=== PATIENT | male | born 1970 ===

== ENCOUNTER 2024-01-04 18:09 | Inpatient (IN) ==
--- NOTE | 2024-01-04 18:18 | ED Triage Note ---
Date of Service January 04, 2024 Provider in Triage Author: Ayde Cole History of Present Illness This patient was briefly evaluated while in triage. An abbreviated physical exam was performed. This patient is a 53-year-old Male who presents to the ED for evaluation of chest pain. Pt. has history of cardiac arrest - LAD in 2010 with 2 stents. Pt. now c/o chest tightness intermittently for a few days. States today, as soon as he does activity or gets his heart rate elevated, experiences chest pain. Note: Pt. is currently on prednisone for gout flare. Pt. experiencing SOB only with pain. Physical Exam VITALS: Vitals are noted on the nurse's note and reviewed by myself. GENERAL: This is a 53 year old male, in no acute distress, nondiaphoretic, well- developed well-nourished. SKIN: No obvious rashes, edema, erythema HEAD: Normocephalic atraumatic. EYES: Conjunctivae without injection, sclerae without icterus. NECK: No JVD. LUNGS: No retractions or accessory muscle use. MUSCULOSKELETAL: Normal gait. NEURO: Patient was alert and oriented to person place and time. No focal neurological deficits. Initial orders for labs and / or imaging were placed and patient was placed in the waiting area until a bed is available. Please see further documentation for the full ED course. MDM / Impression Impression Impression: NSTEMI (non-ST elevated myocardial infarction), Chest pressure, CAD S/P percutaneous coronary angioplasty
[2024-01-04 19:19] LABS: Basophils # (auto) 0.03 K/uL (0.00-0.20); Basophils % (auto) 0.2 %; Hemoglobin 14.2 g/dl (14.0-18.0); Immature Granulocytes # (auto) 0.05 K/uL (0.01-0.20); Immature Granulocytes % (auto) 0.4 %; Lymphocytes # (auto) 2.01 K/uL (1.20-3.40); Lymphocytes % (auto) 15.2 %; Mean Corpuscular Hemoglobin 30.5 pg (25.0-34.0); Mean Corpuscular Hgb Conc 34.6 g/dL (32.0-36.0); Mean Corpuscular Volume 88.2 fL (80.0-100.0); Mean Platelet Volume 9.8 fL (9.4-12.4); Monocytes # (auto) 0.58 K/uL (0.11-0.59); Monocytes % (auto) 4.4 %; Neutrophils # (auto) 10.59 K/uL (1.40-6.50); Neutrophils % (auto) 79.8 %; Platelet Count 306 K/uL (130-400); RDW Coefficient of Variation 12.3 % (11.5-14.5); RDW Standard Deviation 39.5 fL (36.4-46.3); Red Blood Count 4.65 M/uL (4.70-6.10); White Blood Count 13.26 K/ul (4.8-10.8)
[2024-01-04 19:27] LABS: Albumin Globulin Ratio 1.2 (0.9-2); Albumin Level 4.3 gm/dl (3.4-5.0); BUN Creatinine Ratio 22.7 (10-20); Bilirubin,Total 0.3 mg/dl (0.2-1.0); Calcium 9.7 mg/dl (8.6-10.3); Creatinine Clr Calc Pharmacy 113.6 ml/min; Est GFR (African American) 115.3 ml/min; Est GFR (Non-African American) 99.5 ml/min; Globulin 3.6 gm/dl (2.5-4.0); Potassium 4.6 mmol/L (3.5-5.1); Total Protein 7.9 gm/dl (6.0-8.3)
[2024-01-04 19:35] LABS: Troponin I High Sensitivity 1161.5 pg/ml (0-20)
[2024-01-04 19:40] LABS: Partial Thromboplastin Ratio 0.9; Partial Thromboplastin Time 25 Seconds (21-31); Prothrombin Time 11.1 Seconds (9.0-12.0)
--- NOTE | 2024-01-04 19:40 | XRay Report ---
XR chest 1V portable CLINICAL HISTORY: Chest pain, nonspecific TECHNIQUE: Single frontal radiograph of the chest was obtained. Comparison: None available at the time of this dictation. FINDINGS: No lines and tubes are seen. The cardiomediastinal silhouette is normal. The lungs are clear. No evid ence of pleural effusion or pneumothorax. IMPRESSION: No acute chest disease. ACT 112: Negative or not required by law. Electronically signed by: Eduardo Montalvo M.D. 01/04/2024 7:39 PM
[2024-01-04] MEDS: SODIUM CHLORIDE 0.9% 1,000 ML IV STA (19:50)
[2024-01-04] MEDS: ASPIRIN CHEW 324 MG PO STA (19:50)
[2024-01-04] MEDS ORDERED: Heparin IV Adult Wt-Based Low-Dose w/ INITIAL Bolus Protocol IV STA (20:12)
[2024-01-04 20:17] LABS: Appearance Urine Clear (Clear); Bilirubin Urine Negative (Negative); Blood Urine Negative (Negative); Color Urine Yellow; Glucose Urine UA Negative (Negative); Ketones Urine Negative (Negative); Leukocyte Esterase Urine Negative (Negative); Nitrite Urine Negative (Negative); Protein Urine Negative (Negative); Urobilinogen Urine Negative (Negative); pH Urine 7.5 (4.5-7.5)
[2024-01-04] MEDS ORDERED: HEPARIN SOD (PORCINE) 1000 UNIT/ML IV ONE (20:28)
[2024-01-04] MEDS ORDERED: Heparin IV Adult Wt-Based Low-Dose w/ INITIAL Bolus Protocol IV SCH (20:30)
[2024-01-04] MEDS: HEPARIN SOD (PORCINE) 1000 UNIT/ML IV ONE (20:36)
[2024-01-04] MEDS: HEPARIN SODIUM/DEXTROSE 25,000 UNITS/500 ML BAG IV SCH (20:36)
--- NOTE | 2024-01-04 20:39 | History & Physical Report ---
Date of Service January 04, 2024 Assessment & Plan (1) NSTEMI (non-ST elevated myocardial infarction): Plan: -Admit to the PCU on tele -Currently stable and asymptomatic -Presented to the ED with 5 days of ongoing chest pressure and tachycardia with exertion -Noted to have a high sen trop of 1160 on arrival -Hx of Cardiac arrest and PCI with TESS X 2 to the LAD in 2010 -No acute ST segment or T-wave changes on ECG -Cardiology has been consulted, recommended starting heparin drip overnight -Patient was given 324 mg Aspirin and started on low-dose, weight-based heparin drip with bolus -Will start 1 inch of nitro past q6h as he has been hypertensive in the ED -Potassium and mag are stable; monitor and replete to keep potassium at or above 4.0 and mag at or above 2.0 -Cardiology consult placed -Will obtain TTE in the am -Continue to trop high sen trop overnight, 2 hour repeat is in process -Will hold beat blockers for now as his HR has been in the 50-60's since arrival -Continue statin -HH/DMII diet until midnight then NPO in case of heart cath tomorrow -AM CBC, CMP, Mag, PT/INR, A1c, Lipid panel (2) CAD S/P percutaneous coronary angioplasty: Plan: -S/P PCI and TESS X 2 to LAD in 2010 after Cardiac Arrest -Continue statin and 81 mg aspirin daily -Rest of care per NSTEMI plan (3) Gout: Plan: -Patient has been on a prednisone taper for the past week due to recent gout flare in his right knee -States that his dose tomorrow should be reduced from 40 to 20 mg -Will start 20 mg daily for the next two days then can continue to taper as needed -Will start daily pantoprazole for stress ulcer PPX -Right knee with mild erythema and swelling -Hold Naproxen with current NSTEMI (4) Hyperglycemia: Plan: -Patient noted to be hyperglycemic at 199 on arrival -No previous diagnosis of DM -Could be due to his current prednisone taper for gout flare -Will obtain AM A1c and lipid panel -For now with monitor BSG ACHS, goal is 110-160 for now -Will start CF of 50 ACHS -HH/DMII diet (5) Chest pressure: Plan: -See NSTEMI (6) Hyperlipidemia: Plan: -Continue statin Plan The patient was discussed with Dr. Olivares at the time of the admission History of Present Illness Chief Complaint: Chest pain, SOB Primary Care Provider: LOTTIE PCP Linwood is a 53 year old male inmate at [facility] with a PMH significant for cardiac arrest S/P PCI with TESS x 2 to the LAD in 2010, gout, hyperlipidemia who presented to the [facility] ED on 01/04/24 with complaints of substernal chest pain/pressure and KENNEDY for the past 3 days. He remained stable in the ED. Labs were significant for a leukocytosis of 13 with neutrophil predominance of 10, glucose of 199, and initial high sen trop of 1161. ECG's showed NSR without acu te ST segment or T-wave changes. Chest xray was read as negative for acute findings. The patient was given full dose aspirin and 1L NSS initially. The ED spoke with Cardiology who recommended starting the patient on a heparin drip. At the time of the exam the patient was lying in bed in no acute distress. He states that over the past 4-5 days he has been experiencing substernal chest pressure and tachycardia with exertion. He first noticed it approximately 5 days ago while walking briskly. Since then it has been increasing in frequency and severity. He denies radiation of the chest pressure and states that he has not experienced his symptoms while at rest. When asked, he states that these symptoms feel similar to symptoms he was experiencing prior to his last [facility]. He is currently on a prednisone taper for a gout flare in his right knee. He states that the pain and swelling have significantly improved since starting the prednisone. He denies current chest discomfort. He denies cigarette use but did use chewing tobacco in the past. Please refer to Dr. Olivares's attestation for any changes to the treatment plan Allergies Allergy/AdvReac Type Severity Reaction Status Date / Time No Known Allergies Allergy Verified 01/04/24 19:52 Home Medications Medication Instructions Recorded Confirmed Type allopurinol 100 mg tablet 50 mg PO BID PRN GOUT FLARES 01/04/24 01/04/24 History aspirin 81 mg tablet,delayed 81 mg PO DAILY 01/04/24 01/04/24 History release atorvastatin 20 mg tablet 20 mg PO HS 01/04/24 01/04/24 History naproxen 500 mg tablet 500 mg PO BID 01/04/24 01/04/24 History prednisone 10 mg tablet 40 mg PO DAILY 01/04/24 01/04/24 History Past Med/Surg History Social History Smoking Status: Former smoker Tobacco Type: Cigarettes Second Hand Exposure: No; Do You Dip or Chew Tobacco: No; Tobacco Cessation Education Requested by Patient: No Hx Alcohol Use: No Hx Substance Use: No Preferred Language: [place] Communication Ability: Effective Pick Up Operator Required: No Beliefs That Will Affect Care: None Current Living Situation: Other Current Living Situation Comment: [facility] Other Information That Helps Us Care for You: No Feels Safe at Home: Yes Safety Concerns: Feels Safe At This Time Assistive Devices: None Physical Exam Physical Exam: Physical Exam: General: In no acute distress, stated age, well-nourished, good hygiene HEENT: Normocephalic, atraumatic, no scleral icterus, pupils around round, symmetrical, and reactive to light, moist mucus membranes, trachea midline, no thyromegaly Chest/Pulm: No respiratory distress, symmetrical chest expansion, clear breath sounds throughout Cardiac: RRR, no murmurs noted Abdomen: Negative for ascites and bruising, normoactive bowel sounds, soft, non-tender to palpation throughout Musculoskeletal: Symmetrical and without signs of acute trauma, upper and lower extremities with full ROM, patient with minimal swelling and erythema of the right knee Extremities: Radial, dorsalis pedis, and posterior tibial pulses are intact and symmetrical, no edema noted in the BL LE's Skin: as described above Neuro: Alert and oriented to person, place, month, year, and president, no focal defects, no tremors noted Psych: No acute distress, calm and cooperative during the exam Results & Data Results & Data Vital Signs (Past 12 Hours) Vital Signs Temp Pulse Pulse Resp BP BP Pulse Ox 01/04/24 19:57 66 18 172/93 H 99 01/04/24 18:14 36.2 C L 66 20 156/93 H 95 O2 Del Method 01/04/24 19:57 Room Air 01/04/24 18:14 Room Air Laboratory Results Abnormal lab results 01/04/24 Range/Units 18:44 WBC 13.26 H (4.8-10.8) K/ul RBC 4.65 L (4.70-6.10) M/uL Hct 41.0 L (42.0-52.0) % Neut # (Auto) 10.59 H (1.40-6.50) K/uL BUN/Creatinine Ratio 22.7 H (10-20) Glucose 199 H (70-99(Fasting)) mg/dl Troponin I High Sens 1161.5 H* (0-20) pg/ml Diagnostic Findings Chest X-Ray 01/04/24 18:18 XR chest 1V portable CLINICAL HISTORY: Chest pain, nonspecific TECHNIQUE: Single frontal radiograph of the chest was obtained. Comparison: None available at the time of this dictation. FINDINGS: No lines and tubes are seen. The cardiomediastinal silhouette is normal. The lungs are clear. No evidence of pleural effusion or pneumothorax. IMPRESSION: No acute chest disease. ACT 112: Negative or not required by law. Electronically signed by: Eduardo Montalvo M.D. 01/04/2024 7:39 PM ECG Additional Comments: Normal sinus rhythm Normal ECG No previous ECGs available Code Status & VTE Plan Code Status FUll code VTE Prophylaxis Plan VTE Prophylaxis will be ordered: Yes Supervising Physician Co-Signing Physician Notes Attending addendum: I have supervised the medical residents activities, and agree with the H&P unless as otherwise noted. Assessment and Plan: NSTEMI/CAD/history of [facility] and cardiac arrest, status post PCI and TESS x 2 to LAD in 2010- The patient will be admitted to telemetry for serial cardiac enzymes, serial EKG's, cardiac rhythm monitoring and a 2-D echocardiogram with Dopplers. Initial troponin 1161.5 Heparin drip per standard protocol Patient is already received 324 mg aspirin Start Nitropaste 1 inch anterior chest wall every 6 hours Bradycardia makes unable to add beta-denzel Cardiology aware Stop use of naproxen now and long-term Status post 1 L normal saline from the ED Hyperlipidemia- On atorvastatin 20 mg at bedtime Check a fasting lipid panel and hemoglobin A1c in the morning Hyperglycemia- Glucose 199 on admission Likely secondary to present use of prednisone Hemoglobin A1c to be checked as noted Placed on Accu-Cheks with NovoLog SSI per scale as noted Gout- Continue allopurinol Patient with 2 more days of prednisone taper as noted for recent flare, that will be continued PG Care Time/CCT Total # of Minutes Spent Total Time Spent with Patient: Total time spent is greater than 50% in coordination of care (as documented) at patient's floor/unit and/or counseling patient: [place] [address] INT INP/OBS CARE 75MIN Patient Type New Medical Decision Making High Complexity Diagnoses NSTEMI (non-ST elevated myocardial infarction) I21.4 CAD S/P percutaneous coronary angioplasty I25.10; Z98.61 Gout M10.9 Hyperglycemia R73.9 Chest pressure R07.89 Hyperlipidemia E78.5
[2024-01-04 21:05] LABS: Magnesium 2.3 mg/dl (1.7-2.4)
[2024-01-04] MEDS: PANTOprazole 40 MG TAB PO STA (21:08)
[2024-01-04] MEDS ORDERED: GLUCOSE 10 TAB/TUBE PO PRN (21:17)
[2024-01-04] MEDS ORDERED: GLUCAGON FOR INJ 1 MG VIAL SQ PRN (21:17)
[2024-01-04] MEDS ORDERED: CARBOHYDRATES FOR HYPOGLYCEMIA PO PRN (21:17)
[2024-01-04] MEDS ORDERED: DEXTROSE 50% 50 ML SYRINGE IV PRN (21:17)
[2024-01-04] MEDS ORDERED: GLUCOSE 40% GEL 15 GM TUBE PO PRN (21:17)
--- NOTE | 2024-01-04 21:23 | Emergency Department Note ---
Impression & Plan NSTEMI (non-ST elevated myocardial infarction), Chest pressure, CAD S/P percutaneous coronary angioplasty ED Provider Note NAME: URIAH [id number] SENG AGE: 53 SEX: M : 1970 ARRIVES VIA: Walk-In INFORMANT: Patient ED PROVIDER(S): Car Cary DO CHIEF COMPLAINT: chest pain HPI: Patient is a 53-year-old male with a past medical history of a STEMI and cardiac arrest who presents the ER for chest pressure which has been off and on with only exertion in the past week. He notes it gradually getting worse. He normally is very active. Gets shortness of breath with it. No arm or jaw pain. No belly pain, nausea, vomiting, or diarrhea. No dysuria, urgency, or frequency. No other exacerbating or remitting factors. Patient notes that he has not received any stents since 2010 when he had his cardiac arrest. No recent trips or travel or history of blood clots or clotting disorders. No hemoptysis. Patient currently has no chest pain. ADDITIONAL HISTORY OBTAINED: Per HPI Chronic Medical/Social Conditions Affecting Care: Per HPI PAST MEDICAL HISTORY:See Below PAST SURGICAL HISTORY:See Below FAMILY HISTORY:See Below SOCIAL HISTORY:See Below HOME MEDICATIONS:See Below ALLERGIES:See Below VITALS:See Below PHYSICAL EXAMINATION: GENERAL: Sitting up in bed, alert, well appearing, well nourished, no distress, non-toxic EYE EXAM: normal conjunctiva. OROPHARYNX: no exudate, no erythema, lips, buccal mucosa, and tongue normal and mucous membranes are moist NECK: supple, no nuchal rigidity, no adenopathy, non-tender LUNGS: Clear to auscultation. Normal chest wall mechanics HEART: no murmurs, S1 normal and S2 normal ABDOMEN: abdomen soft, non-tender, normo-active bowel sounds, no masses, no rebound or guarding. UPPER EXTREMITIES: upper extremities are grossly normal. LOWER EXTREMITIES: No pitting edema. Calves are equal bilateral NEURO EXAM: Normal sensorium, cranial nerves II-XII grossly intact, normal speech, no gross weakness of arms, no gross weakness of legs. MEDICAL DECISION MAKING: Patient is a 53-year-old male with a past medical history of CAD, cardiac arrest and stents who presents the ER for chest pain. Patient is currently pain-free. IV was established blood work was obtained. Labs show leukocytosis of 13,000. No significant anemia. INR unremarkable. BMP with LFTs and bilirubin was unremarkable with exception of a troponin of just over thousand. Lipase was normal. UA was negative. COVID-negative. Chest x-ray was clean. EKG was unremarkable. Patient was pain-free. Discussed with Dr. Nunez or from cardiology and recommended heparin drip. Patient denies any previous brain bleeds, coughing up blood, urinating blood or vomiting blood. Patient was discussed with the hospitalist for further evaluation management treatment and placed on a heparin drip and bolus. Consults/Care Managements Discussions: Per [facility] Triage Nursing notes reviewed. Limited review of prior medical records performed Vital Signs: reviewed and remarkable for HTN Differential diagnosis: Cardiac ischemia, aortic dissection, pulmonary embolism, pneumothorax, pneumonia, pericarditis, myocarditis, esophageal rupture, GERD, cholecystitis, pancreatitis, musculoskeletal, as well as other pathologies. ER treatment provided: See below Diagnostics interpreted by me include EKG and cardiac monitoring as listed below: -Cardiac Monitoring: An order was placed for continuous cardiac monitoring. The monitor shows a rate of 60 with sinus rhythm. -ECG: Sinus rhythm rate of 57 Normal axis No PVCs QTc 389 -Laboratory studies:Interpreted by me as stated above in MDM and shown below. Imaging studies: Xrays: As interpreted by me: Portable AP upright 1 view of the chest shows no focal infiltrate CTs show: none Procedures:none Critical Care: I have personally spent 32 minutes of critical care time in the direct management of this patient. This includes bedside care, interpretation of diagnostic studies, and testing, discussion with consultants, patient, and family members, and other required patient management activities. This 32 minutes is in excess of all separately billable procedures. Past Med/Surg History Social History Smoking Status: Former smoker Preferred Language: [place] Feels Safe at Home: Yes Allergies Allergies Allergy/AdvReac Type Severity Reaction Status Date / Time No Known Allergies Allergy Verified 01/04/24 19:52 Home Meds Home Medications Medication Instructions Recorded Confirmed allopurinol 100 mg tablet 50 mg PO BID PRN GOUT FLARES 01/04/24 01/04/24 aspirin 81 mg tablet,delayed 81 mg PO DAILY 01/04/24 01/04/24 release atorvastatin 20 mg tablet 20 mg PO HS 01/04/24 01/04/24 naproxen 500 mg tablet 500 mg PO BID 01/04/24 01/04/24 prednisone 10 mg tablet 40 mg PO DAILY 01/04/24 01/04/24 Results & Data (ED) Vital Signs Vital Signs - 24 hr 01/04/24 18:14 01/04/24 19:57 Temperature 36.2 C L Temperature Source Temporal Artery Scan Pulse Rate 66 Pulse Rate [Finger] 66 Respiratory Rate 20 18 Respiratory Effort / Characteristics Non-Labored Blood Pressure 156/93 H Blood Pressure [Right Arm] 172/93 H Blood Pressure Mean 114 Blood Pressure Mean [Right Arm] 119 Pulse Oximetry 95 99 Oxygen Delivery Method Room Air Room Air Sepsis Recent Fever Within 48 Hours No Sepsis New/Unexplained Change in Mental Status N/A Sepsis Action Taken by Nursing No Action Required Laboratory Data 01/04/24 18:44 01/04/24 18:44 Lab Results 01/04/24 01/04/24 01/04/24 Range/Units 18:44 20:08 20:33 WBC 13.26 H (4.8-10.8) K/ul RBC 4.65 L (4.70-6.10) M/uL Hgb 14.2 (14.0-18.0) g/dl Hct 41.0 L (42.0-52.0) % MCV 88.2 (80.0-100.0) fL MCH 30.5 (25.0-34.0) pg MCHC 34.6 (32.0-36.0) g/dL RDW Std Deviation 39.5 (36.4-46.3) fL RDW Coeff of Victorina 12.3 (11.5-14.5) % Plt Count 306 (130-400) K/uL MPV 9.8 (9.4-12.4) fL Immature Gran % (Auto) 0.4 % Neut % (Auto) 79.8 % Lymph % (Auto) 15.2 % [place] % (Auto) 4.4 % Eos % (Auto) 0.0 % Baso % (Auto) 0.2 % Neut # (Auto) 10.59 H (1.40-6.50) K/uL Lymph # (Auto) 2.01 (1.20-3.40) K/uL [place] # (Auto) 0.58 (0.11-0.59) K/uL Eos # (Auto) 0.00 (0.00-0.50) K/uL Baso # (Auto) 0.03 (0.00-0.20) K/uL Immature Gran # (Auto) 0.05 (0.01-0.20) K/uL PT 11.1 (9.0-12.0) Seconds INR 1.0 (0.9-1.1) APTT 25 (21-31) Seconds PTT Ratio 0.9 Sodium 138 (136-145) mmol/L Potassium 4.6 (3.5-5.1) mmol/L Chloride 104 (98-107) mmol/L Carbon Dioxide 27 (21-32) mmol/L Anion Gap 7 (3-11) BUN 20 (6-23) mg/dl Creatinine 0.88 (0.6-1.4) mg/dl Est Cr Clr Drug Dosing 113.6 ml/min Est GFR ( Amer) 115.3 ml/min Est GFR (Non-Af Amer) 99.5 ml/min BUN/Creatinine Ratio 22.7 H (10-20) Glucose 199 H (70-99(Fasting)) mg/dl Calcium 9.7 (8.6-10.3) mg/dl Magnesium 2.3 (1.7-2.4) mg/dl Total Bilirubin 0.3 (0.2-1.0) mg/dl AST 25 (13-39) U/L ALT 37 (7-52) U/L Alkaline Phosphatase 93 (34-104) U/L Troponin I High Sens 1161.5 H* 1050.6 H* (0-20) pg/ml Total Protein 7.9 (6.0-8.3) gm/dl Albumin 4.3 (3.4-5.0) gm/dl Globulin 3.6 (2.5-4.0) gm/dl Albumin/Globulin Ratio 1.2 (0.9-2) Lipase 11 (11-82) U/L Urine Color Yellow Urine Appearance Clear (Clear) Urine pH 7.5 (4.5-7.5) Ur Specific [place] 1.010 (1.000-1.030) Urine Protein Negative (Negative) Urine Glucose (UA) Negative (Negative) Urine Ketones Negative (Negative) Urine Blood Negative (Negative) Urine Nitrite Negative (Negative) Urine Bilirubin Negative (Negative) Urine Urobilinogen Negative (Negative) Ur Leukocyte Esterase Negative (Negative) SARS-CoV-2, RNA, NAAT NEGATIVE (NEGATIVE) Administered Medications Heparin Sodium/Dextrose (Heparin Sodium/Dextrose) 25,000 units in 500 mls @ 19 mls/hr IV .Q24H SOFI; Protocol Stop: 02/03/24 20:29 Last Admin: 01/04/24 20:36 Dose: 950 units/hr, 19 mls/hr Documented By: JOHNSON Co-signed By: RADHA Discontinued Medications Aspirin (Aspirin Chew 324 Mg) 324 mg PO NOW STA Stop: 01/04/24 18:19 Last Admin: 01/04/24 19:50 Dose: 324 mg Documented By: RADHA Heparin Sodium (Porcine) (Heparin Sod (Porcine) 1000 Unit/Ml) 4,000 units IV NOW ONE Stop: 01/04/24 20:31 Last Admin: 01/04/24 20:36 Dose: 4,000 units Documented By: JOHNSON Co-signed By: RADHA Sodium Chloride (Nss) 1,000 mls @ 999 mls/hr IV .Q1H1M STA Stop: 01/04/24 19:18 Last Infusion: 01/04/24 20:57 Dose: Infused Documented By: Admin: 01/04/24 19:50 Dose: 999 mls/hr Documented By: RADHA Pantoprazole Sodium (Pantoprazole 40 Mg Tab) 40 mg PO NOW STA Stop: 01/04/24 20:38 Last Admin: 01/04/24 21:08 Dose: 40 mg Documented By: JOHNSON Imaging Data Radiologist's Impression: Chest X-Ray 01/04/24 18:18 XR chest 1V portable CLINICAL HISTORY: Chest pain, nonspecific TECHNIQUE: Single frontal radiograph of the chest was obtained. Comparison: None available at the time of this dictation. FINDINGS: No lines and tubes are seen. The cardiomediastinal silhouette is normal. The lungs are clear. No evidence of pleural effusion or pneumothorax. IMPRESSION: No acute chest disease. ACT 112: Negative or not required by law. Electronically signed by: Eduardo Montalvo M.D. 01/04/2024 7:39 PM Discharge Plan Visit Data Chief Complaint: Chest Pain Stated Complaint: CHEST PAIN ED Provider: Car Cary Discharge Problem: NSTEMI (non-ST elevated myocardial infarction), Chest pressure, CAD S/P percutaneous coronary angioplasty Patient Disposition: Admitted As Inpatient Discharge Instructions Interventions: ED Discharge Assessment Last Done: 01/04/24 21:16 Forms Stand Alone Forms: [facility] Prescriptions Prescriptions: No Action prednisone 10 mg Tablet 40 mg PO DAILY Rx Instructions: STARTED 01/01/24 FOR 7 DAYS atorvastatin 20 mg Tablet 20 mg PO HS allopurinol 100 mg Tablet 50 mg PO BID PRN (Reason: GOUT FLARES) aspirin 81 mg Tablet,Delayed Release (Dr/Ec) 81 mg PO DAILY naproxen 500 mg Tablet 500 mg PO BID Rx Instructions: STARTED 12/31/23 FOR 8 DAYS Referrals Referrals: PCP,NO [Primary Care Provider] -
[2024-01-04] MEDS: NITROGLYCERIN 2% OINTMENT 30GM TUBE EXT SCH (22:07)
[2024-01-04] MEDS: ATORVASTATIN 20 MG TAB PO SCH (22:25)
[2024-01-05] MEDS: INSULIN ASPART PER UNIT CHARGE SC SCH (01:09)
[2024-01-05 02:31] LABS: Basophils # (auto) 0.03 K/uL (0.00-0.20); Basophils % (auto) 0.2 %; Eosinophils # (auto) 0.05 K/uL (0.00-0.50); Eosinophils % (auto) 0.4 %; Hemoglobin 12.1 g/dl (14.0-18.0); Immature Granulocytes # (auto) 0.05 K/uL (0.01-0.20); Immature Granulocytes % (auto) 0.4 %; Lymphocytes # (auto) 3.36 K/uL (1.20-3.40); Lymphocytes % (auto) 27.5 %; Mean Corpuscular Hemoglobin 30.6 pg (25.0-34.0); Mean Corpuscular Hgb Conc 34.6 g/dL (32.0-36.0); Mean Corpuscular Volume 88.4 fL (80.0-100.0); Mean Platelet Volume 9.9 fL (9.4-12.4); Monocytes # (auto) 0.85 K/uL (0.11-0.59); Neutrophils # (auto) 7.87 K/uL (1.40-6.50); Neutrophils % (auto) 64.5 %; Platelet Count 234 K/uL (130-400); RDW Coefficient of Variation 12.2 % (11.5-14.5); RDW Standard Deviation 39.6 fL (36.4-46.3); Red Blood Count 3.96 M/uL (4.70-6.10); White Blood Count 12.21 K/ul (4.8-10.8)
[2024-01-05 02:50] LABS: Albumin Globulin Ratio 1.3 (0.9-2); Albumin Level 3.6 gm/dl (3.4-5.0); BUN Creatinine Ratio 20.2 (10-20); Bilirubin,Total 0.2 mg/dl (0.2-1.0); Calcium 8.8 mg/dl (8.6-10.3); Chol HDL Ratio 3.7 (0-5); Creatinine Clr Calc Pharmacy 118.8 ml/min; Est GFR (African American) 117.5 ml/min; Est GFR (Non-African American) 101.4 ml/min; Globulin 2.7 gm/dl (2.5-4.0); Magnesium 2.1 mg/dl (1.7-2.4); Total Protein 6.3 gm/dl (6.0-8.3)
[2024-01-05 02:51] LABS: ANTI-Xa, UFH(UnfractionatedHep 0.26 IU/ml (0.3-0.7)
[2024-01-05 03:28] LABS: Troponin I High Sensitivity 1125.2 pg/ml (0-20)
[2024-01-05 03:46] LABS: INR 1.1 (0.9-1.1); Prothrombin Time 11.6 Seconds (9.0-12.0)
--- NOTE | 2024-01-05 07:26 | Hospitalist Progress Note ---
Date of Service January 05, 2024 Assessment & Plan (1) NSTEMI (non-ST elevated myocardial infarction): Plan: Patient with known cardiac history with cardiac arrest in 2010 with subsequent PCI with TESS placement x 2 to LAD. Patient with exertional chest pain for the last few days. Describes symptoms as chest tightness that resolves with activity. Symptoms worse prior to admission. Given aspirin and topical nitro. HsTrop continues to uptrend now ~1300. EKG without acute ischemic changes. On heparin gtt. NPO as patient may need cardiac cath. TTE with normal EF and no wall motion abnormalities. HbA1c 5.8. LDL 90. hold beta blockers as patient bradycardic increase to high intensity statin dosing of atorvastatin K > 4, Mg > 2 NPO for possible cath heparin gtt cards consult - appreciate recs trend trops (2) CAD S/P percutaneous coronary angioplasty: Plan: S/P PCI and TESS X 2 to LAD in 2010 after cardiac arrest. Continue with high intensity statin and 81 mg aspirin daily. Rest of care per NSTEMI plan (3) Gout: Plan: Continue with pred taper for gout flare. PPI for GI pps. Hold naproxen in setting of current NSTEMI. (4) Hyperglycemia: Plan: Patient noted to be hyperglycemic at 199 on arrival. Likely steroid related hyperglycemia as on pred taper for gout flare as patient with no known history of DM. Continue pred taper. CF of 50 ACHS. HbA1c 5.8. (5) Chest pressure: Plan: See NSTEMI (6) Hyperlipidemia: Plan: See NSTEMI Plan Code status: full DVT ppx: heparin gtt FENGI: NPO for possible cath, Heart Healthy/Carb Consistent Dispo: PCU/tele Admission and Anticipated Discharge Date Admission Date: January 04, 2024 Supervising Physician Co-Signing Physician Notes I personally examined the patient and verified britt points of history and exam, discussed case, and agree with decision making and plan documented by Dr. Eckert. NSTEMI. Severe multivessel disease on cardiac cath today. Patient denied cardiac symptoms on exam. Arrangement in process for transfer to [facility] for cardiac intervention. Subjective Patient seen at bedside this AM. Minimum symptoms - dull pressure below the left pec. No SOB, sweating, arm, or jaw pain. Physical Exam 2 Physical Exam: Physical Exam: General: In no acute distress, stated age, well-nourished, good hygiene HEENT: Normocephalic, atraumatic, no scleral icterus, moist mucus membranes, trachea midline, no thyromegaly Chest/Pulm: No respiratory distress, symmetrical chest expansion, clear breath sounds throughout Cardiac: bradycardic, regular rhythm, no m/r/g, clinically well perfused, no murmurs noted Abdomen: Negative for ascites and bruising, non-distended Musculoskeletal: no obvious deformities Skin: no rashes or bruising noted Neuro: Alert and oriented, no focal defects, no tremors noted Psych: No acute distress, calm and cooperative during the exam Results & Data Results & Data Vital Signs (Past 12 Hours) Vital Signs Temp Pulse Resp BP Pulse Ox O2 Del Method 01/05/24 03:40 36.6 C 52 L 12 128/64 96 Room Air 01/04/24 22:36 67 143/85 H 01/04/24 21:40 36.8 C 63 18 179/86 H 99 Room Air 01/04/24 19:57 66 18 172/93 H 99 Room Air Laboratory Results 01/05/24 02:06 01/05/24 02:06 Resident Activity Tracking Resident Involvement: Resident Care Provided Care Provided: Adult Hospital Medicine
[2024-01-05 08:58] LABS: Estimated Average Glucose 120 mg/dl; Hemoglobin A1C 5.8 % (4.5-5.6)
--- NOTE | 2024-01-05 09:21 | XCELERA ---
[id number] [id number]
[2024-01-05] MEDS: ASPIRIN 81 MG ECTAB PO SCH (10:11)
[2024-01-05] MEDS: predniSONE 20 MG TAB PO SCH (10:11)
[2024-01-05] MEDS: PANTOprazole 40 MG in SYRINGE 0 ML IV SCH (10:12)
[2024-01-05 10:51] LABS: ANTI-Xa, UFH(UnfractionatedHep 0.25 IU/ml (0.3-0.7)
--- NOTE | 2024-01-05 12:38 | Pre Anesthesia Assessment ---
Date of Service January 05, 2024 Pre Sedation Assessment Vital Signs Temp Pulse Pulse Resp BP BP Pulse Ox 01/05/24 12:25 79 18 140/84 96 01/05/24 11:08 36.6 C 57 L 18 132/72 97 01/05/24 07:49 36.3 C L 55 L 16 124/73 97 01/05/24 07:42 01/05/24 03:40 36.6 C 52 L 12 128/64 96 01/04/24 22:36 67 143/85 H 01/04/24 21:40 36.8 C 63 18 179/86 H 99 01/04/24 19:57 66 18 172/93 H 99 01/04/24 18:14 36.2 C L 66 20 156/93 H 95 O2 Del Method 01/05/24 12:25 Room Air 01/05/24 11:08 Room Air 01/05/24 07:49 Room Air 01/05/24 07:42 Room Air 01/05/24 03:40 Room Air 01/04/24 22:36 01/04/24 21:40 Room Air 01/04/24 19:57 Room Air 01/04/24 18:14 Room Air Cardiovascular + regular rate and + regular rhythm Respiratory + respiratory effort normal Pre-Sedation Airway Assessment Smoking Status: Former smoker Hx Sleep Apnea: No Hx Difficult Intubation: No Short, Thick Neck: No Thyromental Distance: > or= 3.5 Finger Breadths Oral Cavity: + WNL Mallampati Class: II ASA: ASA3 NPO Status Date of Last Intake of Fluids: 01/04/24 Time of Last Intake of Fluids: 23:00 Date of Last Intake of Solid Food: 01/04/24 Time of Last Intake of Solid Foods: 23:00 Procedure Planning Contraindications for Sedation: none Current Medications Reviewed: Yes Notes The planned sedation has been discussed with the patient. Informed Consent was obtained. I have identified the patient, determined the appropriateness of sedation and have assessed the patient immediately prior to the procedure. All medicine(s) and interventions are by my order.
--- NOTE | 2024-01-05 12:49 | Electrocardiogram Report ---
Test Reason : Blood Pressure : / mmHG Vent. Rate : 057 BPM Atrial Rate : 057 BPM P-R Int : 150 ms QRS Dur : 082 ms QT Int : 400 ms P-R-T Axes : 030 009 014 degrees QTc Int : 389 ms Sinus bradycardia Otherwise normal ECG When compared with ECG of 04-JAN-2024 18:36, (unconfirmed) No significant change was found Confirmed by Madhu Baumann ([id number]) on 01/05/2024 12:49:08 PM Referred By: [facility] Confirmed By:Saw Baumann
--- NOTE | 2024-01-05 12:51 | Electrocardiogram Report ---
Test Reason : Blood Pressure : / mmHG Vent. Rate : 062 BPM Atrial Rate : 062 BPM P-R Int : 152 ms QRS Dur : 074 ms QT Int : 380 ms P-R-T Axes : 045 004 014 degrees QTc Int : 385 ms Normal sinus rhythm Normal ECG No previous ECGs available Confirmed by Madhu Baumann ([id number]) on 01/05/2024 12:50:36 PM Referred By: [facility] Confirmed By:Saw Baumann
--- NOTE | 2024-01-05 13:22 | Cardiology Consultation ---
Date of Consultation January 05, 2024 Assessment & Plan (1) NSTEMI (non-ST elevated myocardial infarction): (2) CAD S/P percutaneous coronary angioplasty: (3) Hyperlipidemia: (4) Chest pressure: Plan 1. NSTEMI: Patient notably elevated cardiac biomarkers. This is in the setting of progressive chest pain. Highly suggestive of an acute coronary syndrome or unstable angina. Patient started on systemic anticoagulation and Nitrol paste. Currently pain-free. We will plan on coronary angiography. 2. Coronary disease: Percutaneous intervention to 2 vessels in the remote past. Unknown distribution. He appears have been maintained on atorvastatin and aspirin. Previously followed by a mosaic technician elsewhere. Patient has been incarcerated for 10 months is not had a visit with a mosaic technician since that time. 3. Chest pain: Highly concerning for unstable angina. No rest symptoms. 4. Hyperlipidemia: Currently on moderate dose atorvastatin. Current LDL 90. Goal LDL less than 70. Would recommend intensifying the medical regimen to include atorvastatin 80. Triglycerides 165. Goal triglycerides would be less than 150. I would consider the addition of Vascepa once he has been on maximum dose atorvastatin should the triglycerides still be elevated. History of Present Illness Reason for Consultation: Chest pain, coronary disease, NSTEMI Requesting Physician: Elise Attending Physician: Aiyana John, History of Present Illness The patient is a 53-year-old gentleman currently incarcerated. He reports a history of a cardiac arrest in setting of myocardial infarction in 2010. At that time the patient underwent implantation of 2 stents. Unknown vessels. One known is the maker. It appears this was done in a staged fashion by report. Since that time the patient has done well. He is very active individ [facility] who engages in routine exercise. He states that recently when he has been exerting himself he has noticed some symptoms of chest pressure. The symptoms tend to improve when he discontinues activity or slows down. The symptoms become progressive over the past few days. Based on the symptoms he presented to the [facility] and was subsequently sent to [facility]. He did not describe symptoms of chest pain at rest. No associated breathing difficulty. No episodes of dizziness or lightheadedness. No further episodes of syncope. Allergies Allergy/AdvReac Type Severity Reaction Status Date / Time No Known Allergies Allergy Verified 01/04/24 19:52 Home Medications Medication Instructions Recorded Confirmed Type allopurinol 100 mg tablet 50 mg PO BID PRN GOUT FLARES 01/04/24 01/04/24 History aspirin 81 mg tablet,delayed 81 mg PO DAILY 01/04/24 01/04/24 History release atorvastatin 20 mg tablet 20 mg PO HS 01/04/24 01/04/24 History naproxen 500 mg tablet 500 mg PO BID 01/04/24 01/04/24 History prednisone 10 mg tablet 40 mg PO DAILY 01/04/24 01/04/24 History Patient History Social History Smoking Status: Former smoker Tobacco Type: Cigarettes Second Hand Exposure: No; Do You Dip or Chew Tobacco: No; Tobacco Cessation Education Requested by Patient: No Hx Alcohol Use: No Hx Substance Use: No Preferred Language: Macedonian Communication Ability: Effective Senior Counsel Commercial Required: No Beliefs That Will Affect Care: None Current Living Situation: Other Current Living Situation Comment: [facility] Other Information That Helps Us Care for You: No Feels Safe at Home: Yes Safety Concerns: Feels Safe At This Time Assistive Devices: None Review of Systems Review of Systems: Per HPI Physical Exam Physical Exam: The patient is alert and oriented. Mood and affect appeared normal. He answered all questions appropriately. HEENT: Pupils are equal and reactive to light and accommodation. Extraocular movements are intact. The sclerae are anicteric. Neuro: Cranial nerves intact Lungs: Clear to auscultation bilaterally. He has good air movement without use of accessory muscles. No rales wheezes or rhonchi. Cardiac: Heart demonstrates a regular rate and rhythm. Normal S1 and S2. No murmurs on examination. Pulses: The patient has palpable radial pulses bilaterally that are equal in intensity Extremities: There was no evidence of hypoperfusion. There is no cyanosis or clubbing. There is no edema. Skin: I did not appreciate any rashes on examination today. Results & Data Vital Signs (Past 12 Hours) Vital Signs Temp Pulse Resp BP Pulse Ox O2 Del Method 01/05/24 12:25 79 18 140/84 96 Room Air 01/05/24 11:08 36.6 C 57 L 18 132/72 97 Room Air 01/05/24 07:49 36.3 C L 55 L 16 124/73 97 Room Air 01/05/24 07:42 Room Air 01/05/24 03:40 36.6 C 52 L 12 128/64 96 Room Air Laboratory Results Abnormal Lab Results 01/04/24 01/04/24 01/04/24 18:44 20:08 20:33 WBC 13.26 H RBC 4.65 L Hgb 14.2 Hct 41.0 L MCV 88.2 MCH 30.5 MCHC 34.6 RDW Std Deviation 39.5 RDW Coeff of [place] 12.3 Plt Count 306 MPV 9.8 Immature Gran % (Auto) 0.4 Neut % (Auto) 79.8 Lymph % (Auto) 15.2 [place] % (Auto) 4.4 Eos % (Auto) 0.0 Baso % (Auto) 0.2 Neut # (Auto) 10.59 H Lymph # (Auto) 2.01 [place] # (Auto) 0.58 Eos # (Auto) 0.00 Baso # (Auto) 0.03 Immature Gran # (Auto) 0.05 PT 11.1 INR 1.0 APTT 25 PTT Ratio 0.9 Heparin Anti-Xa, Unfract Sodium 138 Potassium 4.6 Chloride 104 Carbon Dioxide 27 Anion Gap 7 BUN 20 Creatinine 0.88 Est Cr Clr Drug Dosing 113.6 Est GFR ( Amer) 115.3 Est GFR (Non-Af Amer) 99.5 BUN/Creatinine Ratio 22.7 H Glucose 199 H POC Glucose Estimat Average Glucose Hemoglobin A1c Calcium 9.7 Magnesium 2.3 Total Bilirubin 0.3 AST 25 ALT 37 Alkaline Phosphatase 93 Troponin I High Sens 1161.5 H* 1050.6 H* Total Protein 7.9 Albumin 4.3 Globulin 3.6 Albumin/Globulin Ratio 1.2 Triglycerides Cholesterol LDL Cholesterol, Calc VLDL Cholesterol, Calc HDL Cholesterol Cholesterol/HDL Ratio Lipase 11 Urine Color Yellow Urine Appearance Clear Urine pH 7.5 Ur Specific [place] 1.010 Urine Protein Negative Urine Glucose (UA) Negative Urine Ketones Negative Urine Blood Negative Urine Nitrite Negative Urine Bilirubin Negative Urine Urobilinogen Negative Ur Leukocyte Esterase Negative Nasal Screen MRSA (PCR) SARS-CoV-2, RNA, NAAT NEGATIVE 01/04/24 01/05/24 01/05/24 Unknown 01:00 02:06 WBC 12.21 H RBC 3.96 L Hgb 12.1 L Hct 35.0 L MCV 88.4 MCH 30.6 MCHC 34.6 RDW Std Deviation 39.6 RDW Coeff of Victorina 12.2 Plt Count 234 MPV 9.9 Immature Gran % (Auto) 0.4 Neut % (Auto) 64.5 Lymph % (Auto) 27.5 [place] % (Auto) 7.0 Eos % (Auto) 0.4 Baso % (Auto) 0.2 Neut # (Auto) 7.87 H Lymph # (Auto) 3.36 [place] # (Auto) 0.85 H Eos # (Auto) 0.05 Baso # (Auto) 0.03 Immature Gran # (Auto) 0.05 PT INR APTT PTT Ratio Heparin Anti-Xa, Unfract 0.26 L Sodium 140 Potassium 4.0 Chloride 107 Carbon Dioxide 27 Anion Gap 6 BUN 17 Creatinine 0.84 Est Cr Clr Drug Dosing 118.8 Est GFR ( Amer) 117.5 Est GFR (Non-Af Amer) 101.4 BUN/Creatinine Ratio 20.2 H Glucose 180 H POC Glucose 225 H Estimat Average Glucose 120 Hemoglobin A1c 5.8 H Calcium 8.8 Magnesium 2.1 Total Bilirubin 0.2 AST 16 ALT 25 Alkaline Phosphatase 73 Troponin I High Sens 1125.2 H* Total Protein 6.3 D Albumin 3.6 Globulin 2.7 Albumin/Globulin Ratio 1.3 Triglycerides 165 H Cholesterol 168 LDL Cholesterol, Calc 90 VLDL Cholesterol, Calc 33 H HDL Cholesterol 45 Cholesterol/HDL Ratio 3.7 Lipase Urine Color Urine Appearance Urine pH Ur Specific [place] Urine Protein Urine Glucose (UA) Urine Ketones Urine Blood Urine Nitrite Urine Bilirubin Urine Urobilinogen Ur Leukocyte Esterase Nasal Screen MRSA (PCR) Negative SARS-CoV-2, RNA, NAAT 01/05/24 01/05/24 01/05/24 02:24 08:43 10:14 WBC RBC Hgb Hct MCV MCH MCHC RDW Std Deviation RDW Coeff of [place] Plt Count MPV Immature Gran % (Auto) Neut % (Auto) Lymph % (Auto) [place] % (Auto) Eos % (Auto) Baso % (Auto) Neut # (Auto) Lymph # (Auto) [place] # (Auto) Eos # (Auto) Baso # (Auto) Immature Gran # (Auto) PT 11.6 INR 1.1 APTT PTT Ratio Heparin Anti-Xa, Unfract 0.25 L Sodium Potassium Chloride Carbon Dioxide Anion Gap BUN Creatinine Est Cr Clr Drug Dosing Est GFR ( Amer) Est GFR (Non-Af Amer) BUN/Creatinine Ratio Glucose POC Glucose Estimat Average Glucose Hemoglobin A1c Calcium Magnesium Total Bilirubin AST ALT Alkaline Phosphatase Troponin I High Sens 1284.4 H* Total Protein Albumin Globulin Albumin/Globulin Ratio Triglycerides Cholesterol LDL Cholesterol, Calc VLDL Cholesterol, Calc HDL Cholesterol Cholesterol/HDL Ratio Lipase Urine Color Urine Appearance Urine pH Ur Specific [place] Urine Protein Urine Glucose (UA) Urine Ketones Urine Blood Urine Nitrite Urine Bilirubin Urine Urobilinogen Ur Leukocyte Esterase Nasal Screen MRSA (PCR) SARS-CoV-2, RNA, NAAT 01/05/24 01/05/24 11:04 11:59 WBC RBC Hgb Hct MCV MCH MCHC RDW Std Deviation RDW Coeff of [place] Plt Count MPV Immature Gran % (Auto) Neut % (Auto) Lymph % (Auto) [place] % (Auto) Eos % (Auto) Baso % (Auto) Neut # (Auto) Lymph # (Auto) [place] # (Auto) Eos # (Auto) Baso # (Auto) Immature Gran # (Auto) PT INR APTT PTT Ratio Heparin Anti-Xa, Unfract Sodium Potassium Chloride Carbon Dioxide Anion Gap BUN Creatinine Est Cr Clr Drug Dosing Est GFR ( Amer) Est GFR (Non-Af Amer) BUN/Creatinine Ratio Glucose POC Glucose 90 108 H Estimat Average Glucose Hemoglobin A1c Calcium Magnesium Total Bilirubin AST ALT Alkaline Phosphatase Troponin I High Sens Total Protein Albumin Globulin Albumin/Globulin Ratio Triglycerides Cholesterol LDL Cholesterol, Calc VLDL Cholesterol, Calc HDL Cholesterol Cholesterol/HDL Ratio Lipase Urine Color Urine Appearance Urine pH Ur Specific [place] Urine Protein Urine Glucose (UA) Urine Ketones Urine Blood Urine Nitrite Urine Bilirubin Urine Urobilinogen Ur Leukocyte Esterase Nasal Screen MRSA (PCR) SARS-CoV-2, RNA, NAAT Diagnostic Findings Echocardiogram obtained 01/05/2024: Normal LV systolic function with mild LV hypertrophy. Normal wall motion. No significant valvular heart disease. Chest x-ray obtained at the time of admission did not reveal any acute cardiopulmonary disease. ECG Additional Comments: EKG demonstrated sinus bradycardia. No acute ST or T-wave changes. Essentially normal. PG Care Time/CCT Total # of Minutes Spent Total Time Spent with Patient: Total time spent is greater than 50% in coordination of care (as documented) at patient's floor/unit and/or counseling patient: Coding Level of Care Code 29179 IN/OBS CONSULT LVL 4,60M Diagnoses NSTEMI (non-ST elevated myocardial infarction) I21.4 CAD S/P percutaneous coronary angioplasty I25.10; Z98.61 Hyperlipidemia E78.5 Chest pressure R07.89
[2024-01-05] MEDS: niCARdipine HCL INJ 2.5 MG/ML 10 ML AMP ONE (13:55)
[2024-01-05] MEDS: NITROGLYCERIN/D5W 100MCG/ML 20ML SYR ONE (13:55)
[2024-01-05] MEDS: MIDAZOLAM HCL 1 MG/ML 2ML VIAL ONE (14:22)
[2024-01-05] MEDS: HEPARIN (PORCINE) 1000 UNIT/ML 10 ML (CATH LAB USE ONLY) ONE (14:23)
[2024-01-05] MEDS: OPTIRAY 350 ONE (14:32)
[2024-01-05] MEDS: fentaNYL citrate PF 100 MCG/2 ML VIAL ONE (14:32)
--- NOTE | 2024-01-05 14:35 | Post Anesthesia Assessment ---
Date of Service January 05, 2024 Post Sedation Assessment Vital Signs Temp Pulse Pulse Resp BP BP Pulse Ox 01/05/24 12:25 79 18 140/84 96 01/05/24 11:08 36.6 C 57 L 18 132/72 97 01/05/24 07:49 36.3 C L 55 L 16 124/73 97 01/05/24 07:42 01/05/24 03:40 36.6 C 52 L 12 128/64 96 01/04/24 22:36 67 143/85 H 01/04/24 21:40 36.8 C 63 18 179/86 H 99 01/04/24 19:57 66 18 172/93 H 99 01/04/24 18:14 36.2 C L 66 20 156/93 H 95 O2 Del Method 01/05/24 12:25 Room Air 01/05/24 11:08 Room Air 01/05/24 07:49 Room Air 01/05/24 07:42 Room Air 01/05/24 03:40 Room Air 01/04/24 22:36 01/04/24 21:40 Room Air 01/04/24 19:57 Room Air 01/04/24 18:14 Room Air Recovery Score Activity: Moves 4 extremities Respiration: Deep Breath/Cough Circulation: +/-20% PreAnes Value Consciousness: Fully Awake Oxygen Saturation: O2 needed for >90% Discharge Sedation Level of Care: Fast Track Phase II Post Sedation Plan On clinical assessment, the patient appears to have tolerated the sedation without complications. Patient is recovering as anticipated. Patient will continue to be monitored by nursing and may be discharged when sedation discharge criteria are met per below protocol. Upon Completions of procedure up to 15 minutes continue every 5 minute vital signs and the P.A.R. score; then discharge to a Phase I or Fast Track to Phase II per the following guidelines: * Discharge Patient to appropriate Phase II area if PAR is 8 or greater or return to pre- procedure baseline. The post - procedure orders will be as directed. * If PAR score is less than 8 or not return to pre-procedure baseline then patient will follow Phase I monitoring till PAR is reached for Phase II. The Phase I may be done in procedure room or may call to secure a Phase I area. * If naloxone or flumazenil are used for reversal, hold in Phase I for continued monitoring from when last reversal dose was given for a minimum of 60 minutes or longer pending the nurse and/or physician discretion of patient condition before discharge to Phase II. Please call the Sedation Physician to re-evaluate and complete post-note for discharge to Phase II area. Do NOT discharge from procedure sedation or Phase 1 until post- sedation evaluation note is complete by procedure /sedation MD Sedation Discharge Instructions to be given to the patient at discharge to home.
--- NOTE | 2024-01-05 14:36 | Cardiac Catheterization ---
[employer] Data: Freight Checker Cardiac Status Clinical evaluation leading to the procedure CAD Presenation: Non STEMI Diagnostic Physicians Name: Madhu Baumann MD Closure Device Recommendations: CABG Cardiac Cath Procedure Full Procedure Date January 05, 2024 Pre-Procedure Diagnosis Pre-Procedure Diagnosis: Non STEMI AUC Score AUC Score: 8 Post-Procedure Diagnosis Post-Procedure Diagnosis: Severe CAD Procedure(s) Performed Procedure(s) Performed: Coronary Angiography and Left Heart Cath Planer Offbearer Madhu Baumann MD Estimated Blood Loss Estimated Blood Loss: 10cc Medication(s) Medication(s): Fentanyl, Heparin, Lidocaine 1%, Nicardipine, Nitroglycerin and Versed Summary of Findings Procedure performed: Left heart catheterization, selective coronary angiography Staff snuff container inspector: Madhu Baumann MD Indication: The patient is a 53-year-old inmate who previously undergone percutaneous intervention to the LAD and right coronary artery in the setting of a cardiac arrest in 2010. He presented to our facility from the present with symptoms of progressive angina. The patient stated that over the past week he has had more frequent episodes of chest discomfort with activity. Now at a very low workload. Cardiac biomarkers are also elevated at the time of admission. Procedure in detail: The patient was informed of the risks benefits and alternatives to the intended procedure, he understood such and wished to proceed. He was taken to the cardiac catheterization suite in a fasting state. Conscious sedation was administered per protocol and the patient was monitored electrocardiographically throughout today's procedure. The right wrist area was prepped and draped in usual sterile fashion. This area was anesthetized using subcutaneous administration of a lidocaine solution. The right radial artery was then accessed using Seldinger technique, and a arterial sheath was placed at this site over a guidewire. The sheath was used to facilitate passage of the cardiac catheter for coronary angiography and left heart catheterization. Coronary angiogram was then obtained in multiple orthogonal views prior to removal of the catheter. At the conclusion of the procedure the sheath was removed and hemostasis was achieved at the access site using manual pressure. The patient tolerated procedure well, there were no immediate complications. Equipment used: 5 Kosovan tiger 4, 5 Kosovan AL2 Findings: Coronary angiography Left main: The left main was of normal size and caliber and affectively trifurcate into the left anterior descending, a ramus intermedius and circumflex branch. No significant disease in this vessel. Left anterior descending: The LAD was a heavily diseased vessel. It produced 2 diminutive diagonal branches. There is approximately 50% stenosis in its proximal portion followed by a long segment of disease leading up to a previously placed stent in its midportion. Proximally 90% stenosis just prior to the previously placed stent. Ramus intermedius: By a 70% stenosis in the proximal vessel. Left circumflex: The left circumflex vessel was quite atretic. Relatively normal in its proximal portion but then became very atretic producing only diminutive branches before giving off some collaterals to the right coronary artery. Right coronary: Right coronary artery had stents in its proximal and midportion. There was 100% occlusion in the mid vessel but the distal PDA was reconstituted by [id number] collaterals. Impression: Right dominant coronary system Severe obstructive coronary disease including chronic total occlusion of the right coronary artery, mid LAD stenosis, proximal ramus intermedius stenosis and chronic atretic left circumflex system. Normal left ventricular filling pressures No evidence of aortic stenosis Hemodynamics Rest Ao:: 132/85 mm of mercury Final Ao: 127/81 mm of mercury LV: 129/2 mm of mercury Left ventricular end-diastolic pressure 13 mm of mercury Recommendations Recommendations: CABG Radiation Exposure (mGy) 1087 Contrast (mls) 45 Procedural Complication(s) None Disposition PCU I attest to the content of the Intraoperative Record and any orders documented therein. Any exceptions are noted below. [facility] [place] Card Cath Procedure Codes Cardiac Catheterization Procedure 1: Cardiovascular Cath Procedures: 24112 Coronaries and LHC (+/-LV) Moderate Sedation Procedure 1: Sedation/Anesthesia: 48983 Mod Sedation by the same physician;Init15 Min Child Age 5 & Up Procedure 2: Sedation/Anesthesia: 11224 Mod Sedation by the same physician; Ea [id number] Minutes PG Care Time/CCT Total # of Minutes Spent Total Time Spent with Patient: Total time spent is greater than 50% in coordination of care (as documented) at patient's floor/unit and/or counseling patient:
[2024-01-05 17:12] LABS: ANTI-Xa, UFH(UnfractionatedHep < 0.10 IU/ml (0.3-0.7)
[2024-01-05] MEDS ORDERED: Nursing to Pharmacy Communication SCH (18:00)
[2024-01-05] MEDS: ATORVASTATIN 40 MG TAB PO SCH (20:27)
[2024-01-06 01:30] LABS: ANTI-Xa, UFH(UnfractionatedHep 0.59 IU/ml (0.3-0.7)
[2024-01-06] MEDS ORDERED: Nursing to Pharmacy Communication SCH (06:45)
[2024-01-06] MEDS: INSULIN ASPART PER UNIT CHARGE SC SCH (08:18)
[2024-01-06 08:22] LABS: Basophils # (auto) 0.06 K/uL (0.00-0.20); Basophils % (auto) 0.4 %; Eosinophils # (auto) 0.18 K/uL (0.00-0.50); Eosinophils % (auto) 1.3 %; Hematocrit (blood only) 39.1 % (42.0-52.0); Hemoglobin 13.3 g/dl (14.0-18.0); Immature Granulocytes # (auto) 0.07 K/uL (0.01-0.20); Immature Granulocytes % (auto) 0.5 %; Lymphocytes # (auto) 4.44 K/uL (1.20-3.40); Lymphocytes % (auto) 32.9 %; Mean Corpuscular Hemoglobin 30.4 pg (25.0-34.0); Mean Corpuscular Volume 89.3 fL (80.0-100.0); Mean Platelet Volume 9.7 fL (9.4-12.4); Monocytes # (auto) 0.67 K/uL (0.11-0.59); Neutrophils # (auto) 8.08 K/uL (1.40-6.50); Neutrophils % (auto) 59.9 %; Platelet Count 231 K/uL (130-400); RDW Coefficient of Variation 12.5 % (11.5-14.5); RDW Standard Deviation 40.7 fL (36.4-46.3); Red Blood Count 4.38 M/uL (4.70-6.10)
[2024-01-06 08:40] LABS: Albumin Globulin Ratio 1.3 (0.9-2); Albumin Level 3.8 gm/dl (3.4-5.0); BUN Creatinine Ratio 21.1 (10-20); Bilirubin,Total 0.4 mg/dl (0.2-1.0); Calcium 9.1 mg/dl (8.6-10.3); Creatinine Clr Calc Pharmacy 104.8 ml/min; Est GFR (Non-African American) 92.3 ml/min; Globulin 2.9 gm/dl (2.5-4.0); Potassium 4.1 mmol/L (3.5-5.1); Total Protein 6.7 gm/dl (6.0-8.3)
[2024-01-06 08:45] LABS: INR 1.1 (0.9-1.1); Prothrombin Time 11.8 Seconds (9.0-12.0)
[2024-01-06 08:49] LABS: Troponin I High Sensitivity 803.7 pg/ml (0-20)
[2024-01-06] MEDS ORDERED: INSULIN ASPART PER UNIT CHARGE SC SCH (12:00)
--- NOTE | 2024-01-06 13:31 | Cardiology Progress Note ---
Date of Service January 06, 2024 Assessment & Plan (1) NSTEMI (non-ST elevated myocardial infarction): (2) CAD S/P percutaneous coronary angioplasty: (3) Hyperlipidemia: (4) Chest pressure: Plan 1. NSTEMI: No recurrent symptoms of chest discomfort. Biomarkers trending down foster. I think he has completed his course of heparin and we will discontinue. Continue daily aspirin. Atorvastatin has been increased to 40 mg daily. 2. Coronary disease: Cardiac catheterization yesterday revealed severe multivessel disease. Patient being referred for possible surgical revascularization. 3. Chest pain: Highly concerning for unstable angina. No rest symptoms. 4. Hyperlipidemia: Atorvastatin increased Admission and Anticipated Discharge Date Admission Date: January 04, 2024 Subjective This morning patient claimed he feeling well. No significant symptoms at the right radial access site or involving the right hand. No recurrent symptoms of chest pain. No breathing difficulty. Review of Systems Review of Systems: Per HPI Physical Exam Physical Exam: The patient is alert and oriented. Mood and affect appeared normal. He answered all questions appropriately. HEENT: Pupils are equal and reactive to light and accommodation. Extraocular movements are intact. The sclerae are anicteric. Neuro: Cranial nerves intact Lungs: Clear to auscultation bilaterally. He has good air movement without use of accessory muscles. No rales wheezes or rhonchi. Cardiac: Heart demonstrates a regular rate and rhythm. Normal S1 and S2. No murmurs on examination. Extremities: There was no evidence of hypoperfusion. There is no cyanosis or clubbing. There is no edema. Good perfusion of the right hand. Skin: I did not appreciate any rashes on examination today. Results & Data Vital Signs (Past 12 Hours) Vital Signs Temp Pulse Pulse Resp BP Pulse Ox O2 Del Method 01/06/24 11:59 36.9 C 58 L 18 124/61 96 Room Air 01/06/24 09:08 49 L 01/06/24 07:00 36.6 C 60 20 118/70 95 Room Air 01/06/24 03:11 36.5 C 53 L 18 126/75 96 Room Air Laboratory Results Abnormal Lab Results 01/05/24 01/05/24 01/05/24 16:16 16:32 22:39 WBC RBC Hgb Hct MCV MCH MCHC RDW Std Deviation RDW Coeff of Victorina Plt Count MPV Immature Gran % (Auto) Neut % (Auto) Lymph % (Auto) Douglas % (Auto) Eos % (Auto) Baso % (Auto) Neut # (Auto) Lymph # (Auto) Douglas # (Auto) Eos # (Auto) Baso # (Auto) Immature Gran # (Auto) PT INR Heparin Anti-Xa, Unfract < 0.10 L Sodium Potassium Chloride Carbon Dioxide Anion Gap BUN Creatinine Est Cr Clr Drug Dosing Est GFR ( Amer) Est GFR (Non-Af Amer) BUN/Creatinine Ratio Glucose POC Glucose 107 H Calcium Magnesium Total Bilirubin AST ALT Alkaline Phosphatase Troponin I High Sens 1061.2 H* 828.3 H* D Total Protein Albumin Globulin Albumin/Globulin Ratio 01/06/24 01/06/24 01/06/24 00:25 07:57 08:00 WBC 13.50 H RBC 4.38 L Hgb 13.3 L Hct 39.1 L MCV 89.3 MCH 30.4 MCHC 34.0 RDW Std Deviation 40.7 RDW Coeff of Victorina 12.5 Plt Count 231 MPV 9.7 Immature Gran % (Auto) 0.5 Neut % (Auto) 59.9 Lymph % (Auto) 32.9 Douglas % (Auto) 5.0 Eos % (Auto) 1.3 Baso % (Auto) 0.4 Neut # (Auto) 8.08 H Lymph # (Auto) 4.44 H Douglas # (Auto) 0.67 H Eos # (Auto) 0.18 Baso # (Auto) 0.06 Immature Gran # (Auto) 0.07 PT 11.8 INR 1.1 Heparin Anti-Xa, Unfract 0.59 Sodium 138 Potassium 4.1 Chloride 104 Carbon Dioxide 26 Anion Gap 8 BUN 20 Creatinine 0.95 Est Cr Clr Drug Dosing 104.8 Est GFR ( Amer) 107.0 Est GFR (Non-Af Amer) 92.3 BUN/Creatinine Ratio 21.1 H Glucose 120 H POC Glucose 172 H Calcium 9.1 Magnesium 2.0 Total Bilirubin 0.4 AST 17 ALT 27 Alkaline Phosphatase 80 Troponin I High Sens 809.6 H* 803.7 H* Total Protein 6.7 Albumin 3.8 Globulin 2.9 Albumin/Globulin Ratio 1.3 01/06/24 11:36 WBC RBC Hgb Hct MCV MCH MCHC RDW Std Deviation RDW Coeff of Victorina Plt Count MPV Immature Gran % (Auto) Neut % (Auto) Lymph % (Auto) Douglas % (Auto) Eos % (Auto) Baso % (Auto) Neut # (Auto) Lymph # (Auto) Douglas # (Auto) Eos # (Auto) Baso # (Auto) Immature Gran # (Auto) PT INR Heparin Anti-Xa, Unfract Sodium Potassium Chloride Carbon Dioxide Anion Gap BUN Creatinine Est Cr Clr Drug Dosing Est GFR ( Amer) Est GFR (Non-Af Amer) BUN/Creatinine Ratio Glucose POC Glucose 122 H Calcium Magnesium Total Bilirubin AST ALT Alkaline Phosphatase Troponin I High Sens Total Protein Albumin Globulin Albumin/Globulin Ratio PG Care Time/CCT Total # of Minutes Spent Total Time Spent with Patient: Total time spent is greater than 50% in coordination of care (as documented) at patient's floor/unit and/or counseling patient: Coding Level of Care Code 74383 SUB INP/OBS CARE 2/35MIN Diagnoses NSTEMI (non-ST elevated myocardial infarction) I21.4 CAD S/P percutaneous coronary angioplasty I25.10; Z98.61 Hyperlipidemia E78.5 Chest pressure R07.89
--- NOTE | 2024-01-06 17:18 | Hospitalist Progress Note ---
Date of Service January 06, 2024 Assessment & Plan (1) NSTEMI (non-ST elevated myocardial infarction): Plan: Patient with known cardiac history with cardiac arrest in 2010 with subsequent PCI with TESS placement x 2 to LAD. Patient with exertional chest pain for the last few days. Describes symptoms as chest tightness that resolves with activity. Symptoms worse prior to admission. Given aspirin and topical nitro. HsTrop continues to uptrend now ~1300. EKG without acute ischemic changes. On heparin gtt. TTE with normal EF and no wall motion abnormalities. HbA1c 5.8. LDL 90. hold beta blockers as patient bradycardic O2 as needed increase to high intensity statin dosing of atorvastatin K > 4, Mg > 2 Heart healthy/ DM2 heparin gtt cards consult - appreciate recs--> cardiac catheterization demonstrating multiple vessel stenosis requiring CABG, transfer pending Patient has been accepted at [facility] but bed still pending (2) CAD S/P percutaneous coronary angioplasty: Plan: S/P PCI and TESS X 2 to LAD in 2010 after cardiac arrest. Continue with high intensity statin and 81 mg aspirin daily. Rest of care per NSTEMI plan (3) Gout: Plan: Continue with pred taper for gout flare. PPI for GI pps. Hold naproxen in setting of current NSTEMI. (4) Hyperglycemia: Plan: Patient noted to be hyperglycemic at 199 on arrival. Likely steroid related hyperglycemia as on pred taper for gout flare as patient with no known history of DM. Continue pred taper. CF of 50 ACHS. HbA1c 5.8. (5) Chest pressure: Plan: See NSTEMI (6) Hyperlipidemia: Plan: See NSTEMI Plan Code status: full DVT ppx: heparin gtt FENGI: Heart Healthy/Carb Consistent Dispo: PCU/tele with transfer to [facility] when bed available Admission and Anticipated Discharge Date Admission Date: January 04, 2024 Supervising Physician Co-Signing Physician Notes Attending attestation Pt seen and examined in concert with Dr. Rodriguez. In agreement with the documented findings as noted in the resident documentation with any exceptions or additions as noted here. Resting comfortably in bed without complaint awaiting transfer to tertiary facility for evaluation and management of cardiac disease as noted. Else see resident documentation as noted. Subjective Patient seen at bedside this morning. No acute events reported overnight. Patient is clinically stable and denies any chest pain or shortness of breath. Continues to be on heparin drip. Awaiting transfer to tertiary care facility for CABG which has not able to be done at our facility. No new complaints. Review of Systems Review of Systems: All systems reviewed & are unremarkable except as noted in HPI & below Physical Exam Constitutional: WD/WN, vitals as above Eyes: + anicteric sclerae Neck: normal visual inspection Respiratory: normal respiratory effort, lungs clear to auscultation Cardiovascular: RRR, no murmur, no edema Gastrointestinal (Abdomen): Inspection/Auscultation: abdomen normal to inspection Musculoskeletal: Head/Neck/Chest: normocephalic and head atraumatic Skin: no rashes, warm and dry Psychiatric: A+Ox3, euthymic affect Results & Data Results & Data Vital Signs (Past 12 Hours) Vital Signs Temp Pulse Pulse Resp BP Pulse Ox O2 Del Method 01/06/24 15:30 36.5 C 63 20 109/68 96 Room Air 01/06/24 11:59 36.9 C 58 L 18 124/61 96 Room Air 01/06/24 09:08 49 L 01/06/24 07:00 36.6 C 60 20 118/70 95 Room Air
--- NOTE | 2024-01-06 17:43 | Discharge Summary ---
Date of Service January 06, 2024 Admission HPI Per Admitting Provider Linwood is a 53 year old male inmate at [facility] with a PMH significant for cardiac arrest S/P PCI with TESS x 2 to the LAD in 2010, gout, hyperlipidemia who presented to the [facility] ED on 01/04/24 with complaints of substernal chest pain/pressure and KENNEDY for the past 3 days. He remained stable in the ED. Labs were significant for a leukocytosis of 13 with neutrophil predominance of 10, glucose of 199, and initial high sen trop of 1161. ECG's showed NSR without acute ST segment or T-wave changes. Chest xray was read as negative for acute findings. The patient was given full dose aspirin and 1L NSS initially. The ED spoke with Cardiology who recommended starting the patient on a heparin drip. At the time of the exam the patient was lying in bed in no acute distress. He states that over the past 4-5 days he has been experiencing substernal chest pressure and tachycardia with exertion. He first noticed it approximately 5 days ago while walking briskly. Since then it has been increasing in frequency and s everity. He denies radiation of the chest pressure and states that he has not experienced his symptoms while at rest. When asked, he states that these symptoms feel similar to symptoms he was experiencing prior to his last TN. He is currently on a prednisone taper for a gout flare in his right knee. He states that the pain and swelling have significantly improved since starting the prednisone. He denies current chest discomfort. He denies cigarette use but did use chewing tobacco in the past. Please refer to Dr. Olivares's attestation for any changes to the treatment plan Principal Diagnosis NSTEMI Discharge Exam Constitutional WD/WN, vitals as above Eyes + anicteric sclerae Neck normal visual inspection Respiratory normal respiratory effort, lungs clear to auscultation Cardiovascular RRR, no murmur, no edema Gastrointestinal (Abdomen) Inspection/Auscultation: abdomen normal to inspection Musculoskeletal Head/Neck/Chest: normocephalic and head atraumatic Skin no rashes, warm and dry Psychiatric A+Ox3, euthymic affect Discharge Data Allergies Allergy/AdvReac Type Severity Reaction Status Date / Time No Known Allergies Allergy Verified 01/04/24 19:52 Consultations 01/04/24 20:03 ED Decision to Admit Stat 01/04/24 20:40 Consult Cardiology Routine 01/06/24 16:33 Burn CD for patient Stat Procedures Performed Operation Date: 01/05/24 13:00 Actual Procedures p Cineradiography w/Routine Exam - Madhu Baumann MD p Cath, Left with Cors and Vent - Madhu Baumann MD Ordered Studies 01/05/24 11:57 CL Cath Imgs for PACS use only Routine Hospital Course (1) NSTEMI (non-ST elevated myocardial infarction): Patient brought to the hospital for evaluation of chest pain with exertion and evaluation showed high-sensitivity troponin in the thousands. Patient started on heparin drip and then the following morning taken to [facility] which demonstrated multivessel disease requiring CABG. Patient to be sent to [facility] for CABG when bed becomes available. Kept on heparin drip until then. Since admission, statin increased from atorvastatin 20 mg to 40 mg. ASA continued. (2) CAD S/P percutaneous coronary angioplasty: S/P PCI and TESS X 2 to LAD in 2010 after cardiac arrest. Continue with high intensity statin and 81 mg aspirin daily. Rest of care per NSTEMI plan (3) Gout: Continue with pred taper for gout flare. PPI for GI pps. Hold naproxen in setting of current NSTEMI. (4) Hyperglycemia: Patient noted to be hyperglycemic at 199 on arrival. Likely steroid related hyperglycemia as on pred taper for gout flare as patient with no known history of DM. Continue pred taper. CF of 50 ACHS. HbA1c 5.8. (5) Chest pressure: See NSTEMI (6) Hyperlipidemia: See NSTEMI Plan Code status: full DVT ppx: heparin gtt FENGI: Heart Healthy/Carb Consistent Dispo: PCU/tele with [place] [facility] [place] Total Time Total Time Spent Total Time Spent (In Minutes): 32 Discharge Plan Discharge Items Patient Disposition: Transfer Acute Care Hospital Reason For Visit: CHEST PAIN, NSTEMI Discharge Diagnosis: NSTEMI Activity: Per Instructions section Non-emergency contact: Primary Care Provider and Student Recruiter Call non-emergency contact if: your symptoms worsen Follow-up/Referrals: Shonda AMADOR [Primary Care Provider] - Diet: Regular Addtl Attending Provider Instructions: (1) NSTEMI (non-ST elevated myocardial infarction): Plan: Patient with known cardiac history with cardiac arrest in 2010 with subsequent PCI with TESS placement x 2 to LAD. Patient with exertional chest pain for the last few days. Describes symptoms as chest tightness that resolves with activity. Symptoms worse prior to admission. Given aspirin and topical nitro. HsTrop continues to uptrend now ~1300. EKG without acute ischemic changes. On heparin gtt. TTE with normal EF and no wall motion abnormalities. HbA1c 5.8. LDL 90. hold beta blockers as patient bradycardic O2 as needed increase to high intensity statin dosing of atorvastatin K > 4, Mg > 2 Heart healthy/ DM2 heparin gtt cards consult - appreciate recs--> cardiac catheterization demonstrating multiple vessel stenosis requiring CABG, transfer pending Patient has been accepted at [facility] but bed still pending (2) CAD S/P percutaneous coronary angioplasty: Plan: S/P PCI and TESS X 2 to LAD in 2010 after cardiac arrest. Continue with high intensity statin and 81 mg aspirin daily. Rest of care per NSTEMI plan (3) Gout: Plan: Continue with pred taper for gout flare. PPI for GI pps. Hold naproxen in setting of current NSTEMI. (4) Hyperglycemia: Plan: Patient noted to be hyperglycemic at 199 on arrival. Likely steroid related hyperglycemia as on pred taper for gout flare as patient with no known history of DM. Continue pred taper. CF of 50 ACHS. HbA1c 5.8. (5) Chest pressure: Plan: See NSTEMI (6) Hyperlipidemia: Plan: See NSTEMI Plan Code status: full DVT ppx: heparin gtt FENGI: Heart Healthy/Carb Consistent Dispo: PCU/tele with [place] [facility] [place] Pending Studies at Discharge: No Stand-Alone Forms: My [facility] Skilled Items Patient informed of condition?: Yes DNR: No Discharge Level of Care: Other Communicable Disease: No Discharge Prognosis: Stable Lines: Peripheral IV Urinary Catheter: Yes Medications and DC Order Prescriptions: Continued prednisone 10 mg Tablet 40 mg PO DAILY Rx Instructions: STARTED 01/01/24 FOR 7 DAYS atorvastatin 20 mg Tablet 20 mg PO HS allopurinol 100 mg Tablet 50 mg PO BID PRN (Reason: GOUT FLARES) aspirin 81 mg Tablet,Delayed Release (Dr/Ec) 81 mg PO DAILY naproxen 500 mg Tablet 500 mg PO BID Rx Instructions: STARTED 12/31/23 FOR 8 DAYS Discharge Orders: Discharge Order (Routine); Ordered 01/06/24 Ordered By: Ivan Rodriguez Admission Data Admit Date/Time: 01/04/24 20:39 Attending Provider: Madhu Mae Admit Provider: Rasta Olivares Primary Care Provider: Shonda AMADOR Other Providers: Rasta Olivares; Nicholas Rizzo Other Interventions: Discharge Summary Assessment (RN) Last Done: 01/06/24 17:49 Supervising Physician Co-Signing Physician Notes Attending attestation Pt seen and examined in concert with Dr. Rodriguez. In agreement with the documented findings as noted in the resident documentation with any exceptions or additions as noted here. Resting comfortably in bed without complaint awaiting transfer to tertiary facility for evaluation and management of cardiac disease as noted. Else see resident documentation as noted.
[2024-01-07] MEDS ORDERED: PANTOprazole 40 MG TAB PO SCH (09:00)
== END 2024-01-06 17:28 | disposition short-term general hospital (02) | DRG 282 ==
LOC: ED 18:09 → 2S 20:39 → SUATTDRO 20:39 → 2S 21:16